=== PATIENT | female | born 1995 | race Caucasian/White ===

== ENCOUNTER 2024-05-04 13:18 | Emergency (ER) | payer MEDICAID, SELFPAY ==
[2024-05-04 13:21] VITALS: BP 151/75; PULSE 92; RESP 18; TEMP 36.3; O2SAT 100; BMI 24.5
--- NOTE | 2024-05-04 13:21 | EKG_ITS ---
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
--- NOTE | 2024-05-04 13:21 | DI.RAD.S_ITS ---
PROCEDURE: XR CHEST 1V INDICATIONS: chest pain TECHNIQUE: One view of the chest was acquired. COMPARISON: None. FINDINGS: Surgical changes and devices: None. Lungs and pleura: Lungs are clear. No pleural effusions or pneumothorax. Mediastinum: Mediastinal contours appear normal. Heart size is normal. Bones and chest wall: No suspicious bony lesions. Overlying soft tissues appear unremarkable. IMPRESSION: No acute cardiopulmonary abnormality is seen. Dictated by: Alessio Frederick M.D. on 05/04/2024 at 14:03 Approved by: Alessio Frederick M.D. on 05/04/2024 at 14:03
[2024-05-04] MEDS: ALBUTEROL/IPRATROPIUM 3 ML AMPUL INH (14:08)
--- NOTE | 2024-05-04 14:08 | ED.URI ---
HPI - URI/Sore Throat <Reema Reed PA-C - Last Filed: 05/04/24 15:39> General Chief Complaint: Upper Respiratory Symptoms Stated Complaint: chest tightness Time Seen by Provider: 05/04/24 13:40 History of Present Illness HPI Narrative: Patient is a pleasant 29-year-old female presents to the emergency department with chest congestion. Patient works at 1 of the local hospitals, she has been working a lot of hours, she has been around a lot of sick people. She woke up this morning with chest congestion, chest tightness. Patient has a history of asthma, she uses a rescue inhaler as needed. She has been using her inhaler with limited relief. Presented to the emergency department with her symptoms. Patient denies recent travel, antibiotics, she has been around a lot of sick patients. No fever, no other physical complaints currently at this time. Up-to-date on all immunizations. Does not smoke cigarettes. No recreational drug use. Related Data Previous Rx's Medication Instructions Recorded prednisolone sodium phosphate 10 10 mg PO DAILY #12 tabs 05/04/24 mg disintegrating tablet prednisolone sodium phosphate 10 10 mg PO DAILY #12 tabs 05/04/24 mg disintegrating tablet Review of Systems <Reema Reed PA-C - Last Filed: 05/04/24 15:39> Review of Systems Narrative: Negative except as above Cardiovascular Comments: Chest tightness Respiratory Comments: Cough congestion, upper respiratory symptoms Exam <Reema Reed PA-C - Last Filed: 05/04/24 15:39> Initial Vital Signs Initial Vital Signs: Vital Signs Temperature 97.4 F L 05/04/24 13:21 Pulse Rate 92 H 05/04/24 13:21 Respiratory Rate 18 05/04/24 13:21 Blood Pressure 151/75 H 05/04/24 13:21 Pulse Oximetry 100 05/04/24 13:21 Oxygen Delivery Method Room Air 05/04/24 13:21 Reviewed Const General: cooperative, healthy appearing, comfortable, well developed, well groomed, No acute distress and No in distress Nutritional Appearance: average body habitus and well nourished Orientation: Orientation [facility] Head: normal to inspection, normocephalic and atraumatic Eyes General: Yes appearance normal, both eyes and all related structures Eyelids: eyelids normal Pupils: PERRL EOM: EOM intact bilaterally Resp Effort & Inspection: normal respiratory effort, able to speak in complete sentences, normal respiratory pattern, no audible wheezes, cough, decreased respiratory effort, no respiratory distress, no retractions, no stridor, not tachypneic and no tripod positioning Auscultation: no bronchial breath sounds (Faint wheezes noted in the upper airway, decreased in the bases), no bronchovesicular breath sounds, no crackles, no rhonchi and other Cardio Rate: regular rate Rhythm: regular rhythm Heart Sounds: S1 normal and S2 normal Neuro General: patient alert, patient awake, patient oriented x3 and gait normal Cognition: normal cognition Speech: speech normal Gait: normal gait Motor: muscle tone normal throughout and strength 5/5 throughout Extrem Other: Range of motion, strength, pulses, cap refill is preserved in the upper and lower extremities <Sania Real DO - Last Filed: 05/05/24 08:06> Initial Vital Signs Initial Vital Signs: Vital Signs Temperature 97.4 F L 05/04/24 13:21 Pulse Rate 92 H 05/04/24 13:21 Respiratory Rate 18 05/04/24 13:21 Blood Pressure 151/75 H 05/04/24 13:21 Pulse Oximetry 100 05/04/24 13:21 Oxygen Delivery Method Room Air 05/04/24 13:21 Course <Reema Reed PA-C - Last Filed: 05/04/24 15:39> Orders Ordered: Discontinued Medications Albuterol/Ipratropium (Albuterol/Ipratropium 3 Ml Ampul) 3 ml INH NOW ONE Stop: 05/04/24 14:03 Last Admin: 05/04/24 14:08 Dose: 3 ml Documented By: HILARY Vital Signs Vital signs: Vital Signs - 8 hr 05/04/24 13:21 05/04/24 15:13 Temperature 97.4 F L Pulse Rate 92 H 94 H Respiratory Rate 18 18 Blood Pressure 151/75 H 139/70 Pulse Oximetry 100 100 Oxygen Delivery Method Room Air Room Air Reviewed <Sania Real DO - Last Filed: 05/05/24 08:06> Orders Ordered: Discontinued Medications Albuterol/Ipratropium (Albuterol/Ipratropium 3 Ml Ampul) 3 ml INH NOW ONE Stop: 05/04/24 14:03 Last Admin: 05/04/24 14:08 Dose: 3 ml Documented By: HILARY Vital Signs Vital signs: Vital Signs - 8 hr 05/04/24 13:21 05/04/24 15:13 Temperature 97.4 F L Pulse Rate 92 H 94 H Respiratory Rate 18 18 Blood Pressure 151/75 H 139/70 Pulse Oximetry 100 100 Oxygen Delivery Method Room Air Room Air MDM - URI/Sore Throat <Reema Reed PA-C - Last Filed: 05/04/24 15:39> Lab Data Labs: Lab Results 05/04/24 Range/Units 13:28 SARS-CoV-2 (PCR) Negative (Negative) Influenza A (RT-PCR) Flu a negative (NEGATIVE) Influenza B (RT-PCR) Flu b negative (NEGATIVE) RSV (PCR) Negative (Negative) Imaging Data Chest x-ray: Radiologist's Impression: [place] [address] XRay Report Signed Patient: Kely Hidalgo MR#: [id number] : 1995 Acct:[id number] Age/Sex: 29 / F Date of Service: 05/04/24 Loc: ED Accession Number: [id number] Procedure: XR chest 1V Ordering Provider: Sania Real D.O. PROCEDURE: XR CHEST 1V INDICATIONS: chest pain TECHNIQUE: One view of the chest was acquired. COMPARISON: None. FINDINGS: Surgical changes and devices: None. Lungs and pleura: Lungs are clear. No pleural effusions or pneumothorax. Mediastinum: Mediastinal contours appear normal. Heart size is normal. Bones and chest wall: No suspicious bony lesions. Overlying soft tissues appear unremarkable. IMPRESSION: No acute cardiopulmonary abnormality is seen. Dictated by: Alessio Frederick M.D. on 05/04/2024 at 14:03 Approved by: Alessio Frederick M.D. on 05/04/2024 at 14:03 [facility] Narrative Medical decision making narrative: Patient is a pleasant 29-year-old female presents to the emergency room department with cough, cold, congestion and chest tightness that started this morning. Patient works at 1 of the local hospitals, she has been surrounded by a lot of people who have had cough, cold congestion. She woke up this morning with chest congestion, chest tightness. She presents to the emergency department because even after using her albuterol inhaler she continues to have some chest tightness. No other further complaints. For panel for viral infections was negative. She has not have RSV, influenza, or COVID. Chest x-ray is negative for any underlying cardio thoracic or lung pathology. She received 1 DuoNeb here in the emergency department and had some relief of chest tightness and wheezing. Exam was negative for any substantial acute findings. She did not need a work note Prescription for steroids was sent short course to the local pharmacy. Differential diagnosis; RSV, COVID, influenza, viral infection. Asthma exacerbation. <Sania Real DO - Last Filed: 05/05/24 08:06> Lab Data Labs: Lab Results 05/04/24 Range/Units 13:28 SARS-CoV-2 (PCR) Negative (Negative) Influenza A (RT-PCR) Flu a negative (NEGATIVE) Influenza B (RT-PCR) Flu b negative (NEGATIVE) RSV (PCR) Negative (Negative) Discharge Plan Departure Patient Disposition: Home Clinical Impression: Viral infection Asthma exacerbation Qualifiers: Asthma severity: mild Asthma persistence: intermittent Qualified Code(s): J45.21 - Mild intermittent asthma with (acute) exacerbation Activity Restrictions/Additional Instructions: [id number] supportive therapy for any or complaints. Continue with the albuterol inhaler as needed. A prescription has been sent to [facility] for you. Return to the emergency room department as needed. I hope you feel better. Prescriptions: New prednisolone sodium phosphate 10 mg tablet,disintegrating 10 mg PO DAILY Qty: 12 0RF Rx Instructions: 30 mg daily for 2 days, 20 mg daily for 2 days, 10 mg daily for 2 days. prednisolone sodium phosphate 10 mg tablet,disintegrating 10 mg PO DAILY Qty: 12 0RF Rx Instructions: 30 mg daily for 2 days, 20 mg daily for 2 days, 10 mg daily for 2 days. Stand Alone Forms: Patient Portal/API ED Sign-out <DO Brenda Cruz Last Filed: 05/05/24 08:06> Cosign ED Attending Cosignature Attestation: I was immediately available in the department for consultation.
[2024-05-04 14:23] LABS: Influenza A - CEPHEID Flu A NEGATIVE (NEGATIVE); Influenza B - CEPHEID Flu B NEGATIVE (NEGATIVE); Respiratory Syncytial Virus Negative (Negative)
[2024-05-04 14:28] LABS: COVID-19 CEPHEID 4-PLEX PCR Negative (Negative)
[2024-05-04 15:13] VITALS: BP 139/70; PULSE 94; RESP 18; O2SAT 100
== END 2024-05-04 15:14 | disposition home or self-care (01) ==
PROVIDERS: Emergency Medicine; Emergency Provider Physician Assistant
DX: J45.21 Mild intermittent asthma with (acute) exacerbation (principal); B34.9 Viral infection, unspecified; R07.9 Chest pain, unspecified; Z11.52 Encounter for screening for COVID-19
CPT/HCPCS: 0241U; 71045; 93005; 99283; 99284

== ENCOUNTER 2024-08-13 11:31 | Emergency (ER) | payer OTHER, SELFPAY ==
[2024-08-13 11:33] VITALS: BP 123/61; PULSE 100; RESP 20; TEMP 37.1; O2SAT 98; BMI 24.5
--- NOTE | 2024-08-13 11:59 | ED.ABDPAIN ---
HPI - Abdominal Pain General Chief Complaint: Abdominal Pain Stated Complaint: abd px, vomiting, diarrhea Time Seen by Provider: 08/13/24 11:59 Source: patient Mode of arrival: Ambulatory History of Present Illness HPI narrative: 29-year-old female no significant past medical history presents to the ED for evaluation of abdominal pain, diarrhea vomiting nausea started yesterday at around 11:00 a.m.. States that it has persisted therefore decided come into the ED for further evaluation treatment. Denies any other symptoms such as headache visual disturbances chest pain shortness of breath fever chills or any other GI/ symptoms time. 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 States that she is still having some cramping abdominal pain at time of evaluation nothing making it better or worse. Related Data Previous Rx's Medication Instructions Recorded prednisolone sodium phosphate 10 10 mg PO DAILY #12 tabs 05/04/24 mg disintegrating tablet prednisolone sodium phosphate 10 10 mg PO DAILY #12 tabs 05/04/24 mg disintegrating tablet dicyclomine 10 mg capsule 10 mg PO BID PRN abdominal pain 5 08/13/24 days #10 caps ondansetron 4 mg disintegrating 4 mg PO Q8H PRN nausea and 08/13/24 tablet vomiting 5 days #15 tabs Allergies Allergy/AdvReac Type Severity Reaction Status Date / Time No Known Drug Allergies Allergy Verified 08/13/24 11:33 Review of Systems Review of Systems Narrative: General: Denies fever, chills, weight loss HEENT: Denies headache, eye drainage, eye irritation, head trauma, sore throat, voice change Cardiovascular: Denies any chest pain, palpitations, shortness of breath, tachycardia Respiratory: Denies any shortness of breath, cough, wheeze, stridor GI/: Positive abdominal pain, nausea, vomiting, diarrhea, denies bright red blood per rectum, melanotic stools, urinary frequency, urinary retention, dysuria, hematuria MSK: Denies any joint pain, muscle pains, swelling Skin: Denies any rashes, lesions, discoloration Neuro: Denies any headache, lightheadedness, dizziness, fainting, weakness Psych: Denies SI/HI Patient History Social History Smoking Status: Never smoker Smoking Status: Never smoker Exam Narrative Exam Narrative: General: Cooperative, comfortable, well-developed, not in acute distress HEENT: Normocephalic, atraumatic, PERRLA, normal sclera, eyelids normal, Neck: Active full range of motion, atraumatic Chest: Normal to inspection, negative crepitus, no overlying erythema ecchymosis Respiratory: Normal respiratory effort, not in acute respiratory distress, clear to auscultation bilaterally negative cough, wheeze, tachypnea, rhonchi, rales Cardiology: Regular rate rhythm negative gallop, murmur, rubs GI/: Normal to inspection, soft, nonrigid, mild tenderness to palpation diffusely, exam deferred MSK: Full range of active range of motion of all 4 extremities, atraumatic Skin: No rashes lesions noted Neuro: Alert awake oriented x3, moves all 4 extremities spontaneously, cranial nerves intact, able to answer all questions appropriately follows commands appropriately Psych: Cooperative, negative suicidal or homicidal ideations Initial Vital Signs Initial Vital Signs: Vital Signs Temperature 98.7 F 08/13/24 11:33 Pulse Rate 100 H 08/13/24 11:33 Respiratory Rate 20 08/13/24 11:33 Blood Pressure 123/61 08/13/24 11:33 Pulse Oximetry 98 08/13/24 11:33 Oxygen Delivery Method Room Air 08/13/24 11:33 Course Orders Ordered: ED Orders 08/13/24 12:13 CT abdomen pelvis w con Stat 08/13/24 12:20 Complete Blood Count AUTO DIFF Stat Comprehensive Metabolic Panel Stat HCG Quantitative /Beta subunit Stat Lipase Stat MAG [Magnesium] Stat 08/13/24 12:36 Respiratory Panel (Film Array) Stat Famotidine (Famotidine 20 Mg/2 Ml Vial) 20 mg IV NOW BOB Last Admin: 08/13/24 12:33 Dose: 20 mg Documented By: RLS Ondansetron HCl (Ondansetron 4 Mg/2 Ml Inj) 4 mg IV NOW PRN PRN Reason: Nausea And Vomiting Ondansetron HCl (Ondansetron 4 Mg Odt) 4 mg PO NOW PRN PRN Reason: Nausea And Vomiting Discontinued Medications Ketorolac Tromethamine (Ketorolac 30 Mg/Ml Vial) 30 mg IV NOW ONE Stop: 08/13/24 14:24 Last Admin: 08/13/24 14:51 Dose: 30 mg Documented By: NICOL Ondansetron HCl (Ondansetron 4 Mg/2 Ml Inj) 4 mg IV NOW ONE Stop: 08/13/24 12:14 Last Admin: 08/13/24 12:34 Dose: 4 mg Documented By: CHRISTY Vital Signs Vital signs: Vital Signs - 8 hr 08/13/24 11:33 Temperature 98.7 F Pulse Rate 100 H Respiratory Rate 20 Blood Pressure 123/61 Pulse Oximetry 98 Oxygen Delivery Method Room Air MDM - Abdominal Pain Differential Diagnosis Differential diagnosis: Likely abdominal pain, constipation, diverticulitis, gastroenteritis and other (Viral infection) Lab Data 08/13/24 12:20 08/13/24 12:20 Labs: Lab Results 08/13/24 08/13/24 Range/Units 12:20 12:36 WBC 9.2 (4.5-11.0) X10^3/uL RBC 4.29 (4.0-5.2) X10^6/uL Hgb 13.7 (12.0-16.0) g/dL Hct 39.8 (36-46) % MCV 92.8 (80-100) fL MCH 32.0 (26-34) PG MCHC 34.5 (30-36) % RDW 13.0 (11.6-14.8) % Plt Count 260 (150-400) X10^3/uL Neut % (Auto) 90.3 H (50-75) % Lymph % (Auto) 3.9 L (25-40) % [place] % (Auto) 5.6 (3-14) % Eos % (Auto) 0.0 L (2-4) % Baso % (Auto) 0.2 (0-2) % Neut # (Auto) 8300 H (9226-9628) /uL Lymph # (Auto) 400 L (1290-9709) /uL [place] # (Auto) 500 (0-900) /uL Eos # (Auto) 0 (0-450) /uL Baso # (Auto) 0 (0-100) /uL Sodium 136 L (137-145) mmol/L Potassium 3.9 (3.4-5.1) mmol/L Chloride 107 (98-107) mmol/L Carbon Dioxide 20 L (22-32) mmol/L BUN 13 (7-17) mg/dL Creatinine 0.61 (0.52-1.04) mg/dL Estimated GFR > 60 (>60) mL/min BUN/Creatinine Ratio 21.3 (6-22) Glucose 121 H (70-100) mg/dL Calcium 9.1 (8.4-10.2) mg/dL Magnesium 1.6 (1.6-2.3) mg/dL Total Bilirubin 1.2 (0.2-1.3) mg/dL AST 24 (14-36) IU/L ALT 19 (<35) IU/L Alkaline Phosphatase 59 (38-126) U/L Total Protein 7.4 (6.3-8.2) g/dL Albumin 4.4 (3.5-5.0) g/dL Globulin 3.0 (1.7-4.1) g/dL Albumin/Globulin Ratio 1.5 (1.0-2.8) Lipase 36 (23-300) U/L HCG, Quant < 2.39 mIU/mL Chlamy pneumoniae PCR Not detected (Not Detect) Adenovirus (PCR) Not detected (Not Detect) B. pertussis DNA (PCR) Not detected (Not Detect) B.parapertussis DNA PCR Not detected (Not Detecte) Coronavirus OC43 (PCR) Not detected (Not Detect) Coronavirus HKU1 (PCR) Not detected (Not Detect) Coronavirus 229E (PCR) Not detected (Not Detect) SARS-CoV-2 (PCR) Not detected (Not Detecte) Coronavirus NL63 (PCR) Not detected (Not Detect) Human Metapneumovir PCR Not detected (Not Detect) Influenza Type A (PCR) Not detected (Not Detect) Influenza Type B (PCR) Not detected (Not Detect) M. pneumoniae (PCR) Not detected (Not Detect) Parainfluenza 1 (PCR) Not detected (Not Detect) Parainfluenza 2 (PCR) Not detected (Not Detect) Parainfluenza 3 (PCR) Not detected (Not Detect) Parainfluenza 4 (PCR) Not detected (Not Detect) RSV (PCR) Not detected (Not Detect) Entero/Rhino (PCR) Not detected (Not Detect) Point of care testing: Urine Dip Bedside Urine Glucose Negative Bedside Urine Bilirubin + 1 Bedside Urine Ketone ++ 40 Urine Specific [place] 1.005 Bedside Urine Occult Blood - Negative Bedside Urine pH 8.5 Bedside Urine Protein +/- 15 Bedside Urine Urobilinogen - Negative Bedside Urine Nitrite - Negative Bedside Urine Leukocytes - Negative Esterase Imaging Data CT scan - abdomen/pelvis: Radiologist's Impression: [address] [address] [address] Scan Report Signed Patient: Kely Hidalgo MR#: [id number] : 1995 Acct:[id number] Age/Sex: 29 / F Date of Service: 08/13/24 Loc: ED Accession Number: [id number] Procedure: CT abdomen pelvis w con Ordering Provider: Jian Piedra D.O. PROCEDURE: CT ABDOMEN PELVIS W CON INDICATIONS: diffuse abd pain TECHNIQUE: After the administration of intravenous contrast, axial sections acquired from the lung bases to the pubic symphysis. Coronal and sagittal reformats were performed. For radiation dose reduction, the following was used: automated exposure control, adjustment of mA and/or kV according to patient size. COMPARISON: None. FINDINGS: Image quality: Diagnostic Lower chest: Unremarkable lung bases Normal heart size. Liver: Unremarkable Gallbladder and biliary system: Unremarkable, nondilated Pancreas: No ductal dilation Spleen: Nonenlarged Adrenals: No discrete nodules Kidneys: Right renal cyst at the superior pole. No hydronephrosis or solid renal mass. Subcentimeter lesions are too small to characterize, usually also cysts. Vessels and lymph nodes: No abdominal aortic aneurysm. The main portal vein is patent. No pathologic lymph nodes by size criteria. Bowel and peritoneum: No small bowel obstruction. No pathologic ascites. Prominent loops of fluid-filled small bowel is seen diffusely. There is also mild possible wall thickening of the distal colon with liquid contents more proximally. Body wall: Unremarkable Pelvis: Bladder is under distended. Reproductive organs are unremarkable on limited CT evaluation. Bones: No acute or suspicious osseous finding. IMPRESSION: Possible mild enterocolitis. No small bowel obstruction. No other acute abdominal pelvic abnormality. Other findings above. 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 Patient had lab work imaging performed here not consistent with any acute findings, patient's symptoms more likely gastroenteritis/viral enteritis. Patient will be sent home with symptomatic medication informed to follow up with primary care she verbalized understanding of this agrees to being discharged home with outpatient follow up. Discharge Plan Departure Patient Disposition: Home Clinical Impression: Gastroenteritis Activity Restrictions/Additional Instructions: Please read the discharge instructions sheet carefully and bring all papers to all doctor follow-up visits, as it may contain information that your doctor may want to see. Disease processes change and evolve, if your symptoms worsen or if you develop any new symptoms that are concerning to you please return for evaluation. Your evaluation today does not show any evidence of any life-threatening/serious illnesses requiring admission to the hospital or surgery. Please follow-up with your doctor for re-evaluation in approximately 1 day. Seek immediate medical attention for any worrisome symptoms. *If you do not have a primary care provider please contact the [facility] Resource line at [phone]. They will ask some questions about your medical history and help get you set up with a doctor in the community. Prescriptions: New dicyclomine 10 mg capsule 10 mg PO BID PRN (Reason: abdominal pain) 5 Days Qty: 10 0RF ondansetron 4 mg tablet,disintegrating 4 mg PO Q8H PRN (Reason: nausea and vomiting) 5 Days Qty: 15 0RF No Action prednisolone sodium phosphate 10 mg tablet,disintegrating 10 mg PO DAILY Qty: 12 0RF Rx Instructions: 30 mg daily for 2 days, 20 mg daily for 2 days, 10 mg daily for 2 days. prednisolone sodium phosphate 10 mg tablet,disintegrating 10 mg PO DAILY Qty: 12 0RF Rx Instructions: 30 mg daily for 2 days, 20 mg daily for 2 days, 10 mg daily for 2 days. Referrals: Miscellaneous,Doctor, MD [Primary Care Provider] - Stand Alone Forms: Patient Portal/API/Survey
--- NOTE | 2024-08-13 12:13 | DI.CT.S_ITS ---
PROCEDURE: CT ABDOMEN PELVIS W CON INDICATIONS: diffuse abd pain TECHNIQUE: After the administration of intravenous contrast, axial sections acquired from the lung bases to the pubic symphysis. Coronal and sagittal reformats were performed. For radiation dose reduction, the following was used: automated exposure control, adjustment of mA and/or kV according to patient size. COMPARISON: None. FINDINGS: Image quality: Diagnostic Lower chest: Unremarkable lung bases Normal heart size. Liver: Unremarkable Gallbladder and biliary system: Unremarkable, nondilated Pancreas: No ductal dilation Spleen: Nonenlarged Adrenals: No discrete nodules Kidneys: Right renal cyst at the superior pole. No hydronephrosis or solid renal mass. Subcentimeter lesions are too small to characterize, usually also cysts. Vessels and lymph nodes: No abdominal aortic aneurysm. The main portal vein is patent. No pathologic lymph nodes by size criteria. Bowel and peritoneum: No small bowel obstruction. No pathologic ascites. Prominent loops of fluid-filled small bowel is seen diffusely. There is also mild possible wall thickening of the distal colon with liquid contents more proximally. Body wall: Unremarkable Pelvis: Bladder is under distended. Reproductive organs are unremarkable on limited CT evaluation. Bones: No acute or suspicious osseous finding. IMPRESSION: Possible mild enterocolitis. No small bowel obstruction. No other acute abdominal pelvic abnormality. Other findings above. Dictated by: Seven Friedman M.D. on 08/13/2024 at 12:50 Approved by: Seven Friedman M.D. on 08/13/2024 at 12:54
[2024-08-13 12:29] LABS: Add Manual Diff / Slide Review NO; Basophils Absolute Auto 0 /uL (0-100); Basophils Percent Auto 0.2 % (0-2); Eosinophils Absolute Auto 0 /uL (0-450); Hematocrit 39.8 % (36-46); Hemoglobin 13.7 g/dL (12.0-16.0); Lymphocytes Absolute Auto 400 /uL (1100-4500); Lymphocytes Percent Auto 3.9 % (25-40); Mean Corpuscular HGB Conc 34.5 % (30-36); Mean Corpuscular Volume 92.8 fL (80-100); Monocytes Absolute Auto 500 /uL (0-900); Monocytes Percent Auto 5.6 % (3-14); Neutrophils Absolute Auto 8300 /uL (1500-7000); Neutrophils Percent Auto 90.3 % (50-75); Platelet Count 260 X10^3/uL (150-400); Red Blood Cell Count 4.29 X10^6/uL (4.0-5.2); White Blood Cell Count 9.2 X10^3/uL (4.5-11.0)
[2024-08-13] MEDS: FAMOTIDINE 20 MG/2 ML VIAL IV (12:33)
[2024-08-13] MEDS: ONDANSETRON 4 MG/2 ML INJ IV (12:34)
[2024-08-13 12:38] LABS: Alanine Aminotransferase 19 IU/L (<35); Albumin 4.4 g/dL (3.5-5.0); Albumin Globulin Ratio 1.5 (1.0-2.8); Alkaline Phosphatase 59 U/L (38-126); Aspartate Aminotransferase 24 IU/L (14-36); BUN Creatinine Ratio 21.3 (6-22); Bilirubin Total 1.2 mg/dL (0.2-1.3); Blood Urea Nitrogen 13 mg/dL (7-17); Calcium 9.1 mg/dL (8.4-10.2); Carbon Dioxide 20 mmol/L (22-32); Chloride 107 mmol/L (98-107); Estimated Glomerular Filt Rate > 60 mL/min (>60); Glucose 121 mg/dL (70-100); HEMOLYSIS < 15 (0-50); Lipase 36 U/L (23-300); Potassium 3.9 mmol/L (3.4-5.1); Sodium 136 mmol/L (137-145); Total Protein 7.4 g/dL (6.3-8.2)
[2024-08-13 12:39] LABS: Magnesium 1.6 mg/dL (1.6-2.3)
[2024-08-13 12:56] LABS: HCG Quantitative /Beta subunit < 2.39 mIU/mL
[2024-08-13 14:19] VITALS: PULSE 90; O2SAT 98
[2024-08-13 14:20] VITALS: BP 123/59; PULSE 85; O2SAT 98
[2024-08-13 14:32] LABS: Adenovirus Not Detected (Not Detect); B. parapertussis Not Detected (Not Detecte); Bordetella pertussis Not Detected (Not Detect); Chlamydophila pneumoniae Not Detected (Not Detect); Coronavirus 229E Not Detected (Not Detect); Coronavirus HKU1 Not Detected (Not Detect); Coronavirus NL 63 Not Detected (Not Detect); Coronavirus OC43 Not Detected (Not Detect); Human Metapneumovirus Not Detected (Not Detect); Human Rhinovirus/Enterovirus Not Detected (Not Detect); Influenza A Not Detected (Not Detect); Influenza B Not Detected (Not Detect); Mycoplasma pneumoniae Not Detected (Not Detect); Parainfluenza Virus 1 Not Detected (Not Detect); Parainfluenza Virus 2 Not Detected (Not Detect); Parainfluenza Virus 3 Not Detected (Not Detect); Parainfluenza Virus 4 Not Detected (Not Detect); Respiratory Syncytial Virus Not Detected (Not Detect); SARS- CoV-2 Not Detected (Not Detecte)
[2024-08-13] MEDS: KETOROLAC 30 MG/ML VIAL IV (14:51)
[2024-08-13 15:09] LABS: Ictotest Urine Negative (Negative)
[2024-08-13 15:36] VITALS: PULSE 88; O2SAT 99
[2024-08-13 15:37] VITALS: BP 111/56; PULSE 81; O2SAT 98
[2024-08-13 16:03] LABS: Urine Volume 10mL (spun)
[2024-08-13 16:04] LABS: Bacteria Urine Few (2-10); Culture Indicated Urine Cult Not Indicated; RBC Urine 0-1/HPF (0-5/HPF); Squamous Epithelial Cell Urine 5-10 /HPF (0-5/HPF); WBC Urine 0-1/HPF (0-5/HPF)
== END 2024-08-13 15:43 | disposition home or self-care (01) ==
PROVIDERS: Emergency Provider Student in an Organized Health Care Education/Training Program
DX: K52.9 Noninfective gastroenteritis and colitis, unspecified (principal)
CPT/HCPCS: 36415; 74177; 80053; 81003; 81015; 83690; 83735; 84702; 85025; 87633; 96374; 96375; 99284; J1885; J2405; Q9967

== ENCOUNTER 2025-03-13 22:23 | Emergency (ER) | payer OTHER, SELFPAY ==
[2025-03-13 22:27] VITALS: BP 146/90; PULSE 88; RESP 17; TEMP 37; O2SAT 96; BMI 24.5
[2025-03-13] MEDS: ONDANSETRON 4 MG/2 ML INJ IV (22:40)
[2025-03-13 22:43] LABS: Add Manual Diff / Slide Review NO; Hematocrit 36.5 % (36-46); Hemoglobin 12.8 g/dL (12.0-16.0); Lymphocytes Absolute Auto 1700 /uL (1100-4500); Mean Corpuscular HGB Conc 34.9 % (30-36); Mean Corpuscular Hemoglobin 32.8 PG (26-34); Mean Corpuscular Volume 94.0 fL (80-100); Platelet Count 296 X10^3/uL (150-400)
[2025-03-13 22:53] LABS: Alanine Aminotransferase 25 IU/L (<35); Albumin 4.7 g/dL (3.5-5.0); Albumin Globulin Ratio 1.5 (1.0-2.8); Alkaline Phosphatase 67 U/L (38-126); Blood Urea Nitrogen 10 mg/dL (7-17); Calcium 9.3 mg/dL (8.4-10.2); Carbon Dioxide 23 mmol/L (22-32); Chloride 106 mmol/L (98-107); Estimated Glomerular Filt Rate > 60 mL/min (>60); Globulin 3.1 g/dL (1.7-4.1); Glucose 117 mg/dL (70-99); HEMOLYSIS < 15 (0-50); Potassium 3.6 mmol/L (3.4-5.1); Sodium 138 mmol/L (137-145); Total Protein 7.8 g/dL (6.3-8.2)
[2025-03-14 00:06] LABS: Ictotest Urine Negative (Negative)
[2025-03-14 00:07] LABS: Culture Indicated Urine Cult Not Indicated
--- NOTE | 2025-03-14 01:09 | ED_ITS ---
HPI - Nausea/Vomiting/Diarrhea General Chief complaint: Nausea/Vomiting/Diarrhea Stated complaint: nausea vomiting Time Seen by Provider: 03/14/25 01:04 Source: patient Mode of arrival: Ambulatory History of Present Illness HPI Narrative: 30-year-old female complains of multiple episodes of nausea and nonbloody emesis since 10:00 p.m. today, some epigastric area discomfort. No history of gallbladder surgery. No history of ulcers in her stomach. Does not drink alcohol, uses occasional marijuana. History of cyclic vomiting syndrome or diabetes or gastroparesis known. No black or red stools. No fevers or chills. No injury trauma new activities. She has had intermittent spotting, has Norplant, irregular periods, does not believe she is known to be or at risk for being . She denies any pain or frequent urination. No back pain or flank pain. Related Data Previous Rx's ?Medication ?Instructions ?Recorded omeprazole 20 mg capsule,delayed 20 mg PO DAILY upper abdominal 03/14/25 release pain 30 days #30 caps Allergies Allergy/AdvReac Type Severity Reaction Status Date / Time No Known Drug Allergies Allergy Verified 03/13/25 22:27 Exam Narrative Exam Narrative: GENERAL: Well-developed patient, in mild distress. HEAD: Atraumatic. Normocephalic. EYES: Pupils equal round and reactive. Extraocular motions intact. No scleral icterus. No injection or drainage. ENT: Nose without bleeding, purulent drainage. Throat without erythema, tonsillar hypertrophy or exudate. Airway patent. NECK: Trachea midline. Non tender CARDIOVASCULAR: Regular rate and rhythm without murmurs, gallops, or rubs. RESPIRATORY: Clear to auscultation. Breath sounds equal bilaterally. No wheezes, rales, or rhonchi. GASTROINTESTINAL: Abdomen soft, non-tender, nondistended. EXTREMITIES: No edema or joint tenderness. BACK: Nontender without deformity or crepitance. No flank tenderness. NEURO: AOx3. Motor functions grossly nonfocal. SKIN: No rash or erythema of visible areas Initial Vital Signs Initial Vital Signs: Vital Signs Temperature 98.6 F 03/13/25 22:27 Pulse Rate 88 03/13/25 22:27 Respiratory Rate 17 03/13/25 22:27 Blood Pressure 146/90 H 03/13/25 22:27 Pulse Oximetry 96 03/13/25 22:27 Oxygen Delivery Method Room Air 03/13/25 22:27 Course Orders Ordered: ED Orders 03/13/25 22:35 Complete Blood Count AUTO DIFF Stat Comprehensive Metabolic Panel Stat 03/13/25 23:29 Ictotest Urine Stat Urine Microscopic Stat Discontinued Medications Sodium Chloride (Normal Saline 0.9%) 1,000 mls @ 1,000 mls/hr IV BOLUS ONE Stop: 03/14/25 02:09 Last Infusion: 03/14/25 02:56 Dose: Infused Documented By: Admin: 03/14/25 01:27 Dose: 1,000 mls/hr Documented By: ROSALIA Ondansetron HCl (Ondansetron 4 Mg/2 Ml Inj) 4 mg IV NOW PRN PRN Reason: Nausea And Vomiting Last Admin: 03/13/25 22:40 Dose: 4 mg Documented By: HEBERT Ondansetron HCl (Ondansetron 4 Mg Odt) 4 mg PO NOW PRN PRN Reason: Nausea And Vomiting Ondansetron HCl (Ondansetron 4 Mg/2 Ml Inj) 4 mg IV NOW ONE Stop: 03/14/25 01:11 Last Admin: 03/14/25 01:30 Dose: 4 mg Documented By: ROSALIA Ondansetron HCl (Ondansetron 4 Mg Odt Prepack) 1 bottle MISC DIRECTED ONE Stop: 03/14/25 01:45 Last Admin: 03/14/25 03:03 Dose: 1 bottle Documented By: SONJA Pantoprazole Sodium (Pantoprazole 40 Mg Vial) 40 mg IV NOW ONE Stop: 03/14/25 01:11 Last Admin: 03/14/25 01:28 Dose: 40 mg Documented By: ROSALIA Vital Signs Vital signs: Vital Signs - 8 hr 03/13/25 22:27 Temperature 98.6 F Pulse Rate 88 Respiratory Rate 17 Blood Pressure 146/90 H Pulse Oximetry 96 Oxygen Delivery Method Room Air MDM - Nausea/Vomiting/Diarrhea Lab Data Attestation: I reviewed the patient's lab results. Lab results narrative: White blood cell count 6700, hemoglobin 12.8, platelets adequate. Basic metabolic panel results unremarkable. Liver functions normal. Urinalysis negative. Urine test negative. 03/13/25 22:35 03/13/25 22:35 Labs: Lab Results 03/13/25 03/13/25 Range/Units 22:35 23:29 WBC 6.7 (4.5-11.0) X10^3/uL RBC 3.89 L (4.0-5.2) X10^6/uL Hgb 12.8 (12.0-16.0) g/dL Hct 36.5 (36-46) % MCV 94.0 (80-100) fL MCH 32.8 (26-34) PG MCHC 34.9 (30-36) % RDW 13.2 (11.6-14.8) % Plt Count 296 (150-400) X10^3/uL Neut % (Auto) 64.5 (50-75) % Lymph % (Auto) 25.0 (25-40) % [place] % (Auto) 9.7 (3-14) % Eos % (Auto) 0.2 L (2-4) % Baso % (Auto) 0.6 (0-2) % Neut # (Auto) 4300 (9554-7535) /uL Lymph # (Auto) 1700 (1354-1433) /uL [place] # (Auto) 700 (0-900) /uL Eos # (Auto) 0 (0-450) /uL Baso # (Auto) 0 (0-100) /uL Sodium 138 (137-145) mmol/L Potassium 3.6 (3.4-5.1) mmol/L Chloride 106 (98-107) mmol/L Carbon Dioxide 23 (22-32) mmol/L BUN 10 (7-17) mg/dL Creatinine 0.81 (0.52-1.04) mg/dL Estimated GFR > 60 (>60) mL/min BUN/Creatinine Ratio 12.3 (6-22) Glucose 117 H (70-99) mg/dL Calcium 9.3 (8.4-10.2) mg/dL Total Bilirubin 0.8 (0.2-1.3) mg/dL AST 30 (14-36) IU/L ALT 25 (<35) IU/L Alkaline Phosphatase 67 (38-126) U/L Total Protein 7.8 (6.3-8.2) g/dL Albumin 4.7 (3.5-5.0) g/dL Globulin 3.1 (1.7-4.1) g/dL Albumin/Globulin Ratio 1.5 (1.0-2.8) Ur Bilirubin Confirm Negative (Negative) Urine RBC 0-1/hpf (0-5/HPF) Urine WBC None seen (0-5/HPF) Ur Squamous Epith Cells 1-5 /hpf (0-5/HPF) Urine Bacteria None seen (None) Urine Mucus 1+ H (Negative) Ur Culture Indicated? Cult not indicated Vol Urine Centrifuged 10ml (spun) Point of Care Testing Test Results Negative Urine Dip Bedside Urine Glucose Negative Bedside Urine Bilirubin + 1 Bedside Urine Ketone ++ 40 Urine Specific [place] 1.030 Bedside Urine Occult Blood +/- Bedside Urine pH 6.0 Bedside Urine Protein +/- 15 Bedside Urine Urobilinogen +/- 1mg Bedside Urine Nitrite - Negative Bedside Urine Leukocytes - Negative Esterase MDM Narrative Medical decision making narrative: 30-year-old female with epigastric pain and nonbloody emesis since earlier today, afebrile, sirs screen negative, no significant abdominal tenderness. IV fluids and antiemetics given. Labs pending. Lab data: White blood cell count 6700, hemoglobin 12.8, platelets adequate. Basic metabolic panel results unremarkable. Liver functions normal. Urinalysis negative. Urine test negative. Symptoms improved. Discharged home. Prescription for omeprazole. Follow up with PCP advised. Return precautions discussed. Discharge Plan Departure Patient Disposition: Home Clinical Impression: Epigastric abdominal pain, Nausea and vomiting Activity Restrictions/Additional Instructions: Epigastric abdominal discomfort with nonbloody emesis today. Screening labs unremarkable. IV fluids given, IV antacid. IV antinausea medication. Home pack of ondansetron ODT given to help control nausea to use if needed. Trial of omeprazole antacid for now. Prescription for omeprazole sent to your pharmacy. Take medications as directed. Follow up with your regular doctor later this week if symptoms not improving. Return to this/nearest emergency department for any change worsening symptoms or any concerns prior. Prescriptions: New omeprazole 20 mg capsule,delayed release(DR/EC) 20 mg PO DAILY 30 Days Qty: 30 0RF Referrals: Miscellaneous,[facility] [Primary Care Provider, Medical] Stand Alone Forms: Patient Portal/API
[2025-03-14] MEDS: SODIUM CHLORIDE 0.9% 1,000 ML 1000 ML IV (01:27)
[2025-03-14] MEDS: PANTOPRAZOLE 40 MG VIAL IV (01:28)
[2025-03-14] MEDS: ONDANSETRON 4 MG/2 ML INJ IV (01:30)
[2025-03-14] MEDS: ONDANSETRON 4 MG ODT PREPACK 1 BOTTLE MISC (03:03)
[2025-03-14 03:15] VITALS: BP 134/84; PULSE 76; RESP 18; O2SAT 100
== END 2025-03-14 03:48 | disposition home or self-care (01) ==
PROVIDERS: Emergency Provider Emergency Medicine
DX: R10.13 Epigastric pain (principal); R11.2 Nausea with vomiting, unspecified
CPT/HCPCS: 36415; 80053; 81003; 81015; 81025; 85025; 96361; 96374; 96375; 96376; 99284; J2405; J2470